=== PATIENT | male | born 1990 | race Caucasian/White ===

== ENCOUNTER 2024-08-29 23:08 | Emergency (ER) | payer MEDICAID ==
[~2024-08-29] VITALS: Ht 172.7 cm; Wt 87.0 kg
[2024-08-29 23:39] VITALS: O2SAT 100
[2024-08-30 01:34] LABS: CHLORIDE 102 mEq/L (98-107); SODIUM 138 mEq/L (136-145)
[2024-08-30 01:35] LABS: CALCIUM 9.6 mg/dL (8.7-10.4); CARBON DIOXIDE 27 mEq/L (21-32)
[2024-08-30 01:40] LABS: CREATININE 1.3 mg/dL (0.6-1.3); GLUCOSE 91 mg/dL (70-105); UREA NITROGEN BLOOD 24 mg/dL (9-23)
[2024-08-30 01:42] LABS: ALANINE AMINOTRANSFERASE 64 IU/L (10-49); ALBUMIN 4.3 g/dL (3.2-4.8); ASPARTATE AMINOTRANSFERASE 34 IU/L (<34); BILIRUBIN DIRECT 0.3 mg/dL (<=3.0); BILIRUBIN TOTAL 1.1 mg/dL (0.1-1.0); PROTEIN TOTAL 7.1 g/dL (6.0-8.3)
[2024-08-30 01:55] LABS: BASOPHILS % 0.5 % (0.0-2.0); EOSINOPHILS % 2.1 % (0.0-5.0); HEMATOCRIT. 44.7 % (42.0-52.0); HEMOGLOBIN. 15.1 g/dL (14.0-18.0); LYMPHOCYTES % 21.9 % (20.0-50.0); MEAN CORPUSCULAR HEMOGLOBIN 28.8 pg (28.0-32.0); MEAN CORPUSCULAR HGB CONC 33.9 g/dL (31.0-37.0); MEAN CORPUSCULAR VOLUME 85.2 fL (80.0-94.0); MEAN PLATELET VOLUME 8.3 fl (7.4-10.4); MONOCYTES % 11.5 % (2.0-8.0); PLATELET 191 x1000/uL (130-400); RED BLOOD CELL COUNT 5.25 mill/uL (4.7-6.1); RED CELL DISTRIBUTION WIDTH 13.1 % (11.6-14.6); WHITE BLOOD COUNT 9.5 x1000/uL (4.5-11.0)
[2024-08-30] MEDS: KETOROLAC 15MG/ML VIAL IM ONE (03:35)
[2024-08-30 03:38] VITALS: BP 139/90; PULSE 80; RESP 23; TEMP 37.1; O2SAT 100
[2024-08-30] MEDS ORDERED: T3 PO (07:57)
[2024-08-30] MEDS ORDERED: TAMS-11 PO (07:57)
== END 2024-08-30 08:22 | disposition home or self-care (01) ==
LOC: ER 23:08
DX: N20.0 Calculus of kidney (principal)
CPT/HCPCS: 99285; 36415 ×2; 74176; 80076; 80048; 83690; 85025; 86850; 86900; 86901; 96372; J1885